=== PATIENT | female | born 1965 | race Caucasian/White ===

== ENCOUNTER 2024-11-28 09:12 | Outpatient (CLI) | payer BC, SELFPAY ==
[2024-11-28 14:13] LABS: Bacterial Vaginosis* Negative (Negative); Candida glab/krus NOT DETECTED (No Detected); Candida species NOT DETECTED (No Detected); Trichomonas vaginalis NOT DETECTED (No Detected)
== END 2024-11-28 09:13 | disposition home or self-care (01) ==
LOC: NFLDREF 09:12
PROVIDERS: PCP Family Medicine; Visit Provider Physician Assistant
DX: R10.2 Pelvic and perineal pain (principal)
CPT/HCPCS: 81513; 87481; 87661

== ENCOUNTER 2024-12-31 09:00 | Outpatient (RCR) | payer BC, SELFPAY | END 2025-03-18 11:01 | disposition home or self-care (01) | PROVIDERS: PCP Family Medicine; Visit Provider Family Medicine | DX: N94.819 Vulvodynia, unspecified (principal); M62.89 Other specified disorders of muscle; N94.2 Vaginismus; Z51.89 Encounter for other specified aftercare | CPT/HCPCS: 97140; 97162; 97530; 97535 ==